=== PATIENT | male | born 1985 | race Caucasian/White ===

== ENCOUNTER 2020-08-21 11:10 | Emergency (ER) | payer MEDICAID, OTHER, SELFPAY ==
[2020-08-21 11:31] VITALS: BP 138/87; PULSE 88; RESP 16; TEMP 36.9; O2SAT 97; BMI 24.3
[2020-08-21 11:34] VITALS: BP 130/84; PULSE 87; RESP 16; TEMP 36.8
== END 2020-08-21 11:36 | disposition home or self-care (01) ==
PROVIDERS: Emergency Provider Nurse Practitioner Family
DX: S01.01XD Laceration without foreign body of scalp, subsequent encounter (principal)

== ENCOUNTER 2020-10-21 19:30 | Emergency (ER) | payer MEDICAID, OTHER, SELFPAY ==
[2020-10-21 19:30] VITALS: BP 136/87; PULSE 84; RESP 18; TEMP 36.8; O2SAT 98; BMI 24.5
--- NOTE | 2020-10-21 20:06 | HMH.EDUTC ---
[facility] [place] Clinical Impression: URI (upper respiratory infection) Qualifiers: URI type: unspecified URI Qualified Code(s): J06.9 - Acute upper respiratory infection, unspecified Disposition: Home, Self-Care Condition on Discharge: Good Instructions: Sore Throat, Sinusitis Additional Instructions: *Monitor Temp, Over the counter Motrin or Tylenol as directed/as needed Tylenol every 4 hours and Motrin every 6 hours (as long as your family doctor has told you that you can take it) for fever or pain. and straight to ER if unable to lower temp less than 101.0 after medication given *Warm salt water gargles may help to soothe the throat *Throat Lozenges *Warm fluids like tea with honey may help to soothe the throat *Sleep elevated *Humidifier/Vaporizer Over the counter cough medication may help if you are having a cough Follow up IMMEDIATELY for new or worsening symptoms or no Noticeable improvement over the next 48-72 hours. 911 for difficulty breathing or swallowing Referrals: PCP,No [Primary Care Provider] - As needed Time of Disposition: 20:27 Medical Decision Making - Al Inquiry Pt receiving controlled substance: No Al was queried for this patient: No Vital Signs: 10/21/20 19:30 10/21/20 20:27 Temperature 98.2 F 98.2 F Temperature Source Oral Pulse Rate 84 Pulse Rate [Right Brachial] 84 Respiratory Rate 18 18 Blood Pressure 136/87 Blood Pressure [Right Arm] 136/87 Blood Pressure Mean [Right Arm] 103 Blood Pressure Source [Right Arm] Automatic Cuff Blood Pressure Position [Right Arm] Sitting 02 Sat by Pulse Oximetry 98 Oxygen Delivery Method Room Air Orders (Tests/Meds): ED MEDICATIONS Discontinued Medications Generic Name Dose Route Start Last Admin Trade Name Freq PRN Reason Stop Dose Admin Ceftriaxone Sodium 1 gm 10/21/20 20:11 10/21/20 20:20 Ceftriaxone 1gm Vial IM 10/21/20 20:12 1 gm ONCE ONE Administration Protocol Lidocaine HCl 0 ml 10/21/20 20:11 10/21/20 20:20 Lidocaine 1% 5ml Pf Vial IM 10/21/20 20:12 2.1 ml ONCE ONE Administration Methylprednisolone Sodium Succinate 125 mg 10/21/20 20:11 10/21/20 20:20 Methylprednisolone Sod Succ 125mg Vial IM 10/21/20 20:12 125 mg ONCE ONE Administration [facility] [place] - General Stated complaint: congested Time Seen by Provider: 10/21/20 20:09 Mode of Arrival: Ambulatory Source of Information: Patient Limitations: No Limitations Description of Symptoms (Recalled from Triage Doc. by RN): PATIENT C/O SINUS CONGESTION X 3 DAYS HEENT Symptoms (Recalled from RN notes): Yes Resp Symptoms (Recalled from RN notes): No Skin Symptoms (Recalled from RN notes): No MS Symptoms (Recalled from RN notes): No Functional Status (Recalled from RN notes): WNL - History of Present Illness Provider Complaint: Patient states that he has been having sinus congestion and pressure that has got worse over the last 2-3 days States that it feels like he is having drainage in the back of his throat and cannot breath out of his nose it so stopped up State that he was worried that it would get worse so he came in to seen and treated before he got worse - Related Data Allergies Allergy/AdvReac Type Severity Reaction Status Date / Time No Known Allergies Allergy Unverified 06/25/17 14:42 - Worker's Comp Is this a Worker's Comp case?: No [facility] History - Hepatitis A Screen Drug use history?: No High risk sexual behaviors?: No History of sexually transmitted infection?: No Currently employed?: No Childcare worker?: No Do you have indoor plumbing?: Yes Do you have electricity?: Yes Attestation statement:: This patient has been screened for Hepatitis A risk factors. I have reviewed the patient's past medical history: Yes Medical History: Denies:: Diabetes Mellitus Type 2, Hypertension Other Surgeries: Yes: Appendectomy, Other (vasectomy) - Social History Smoking Status: Current every day smo
[2020-10-21 20:27] VITALS: BP 136/87; PULSE 84; RESP 18; TEMP 36.8; O2SAT 98
== END 2020-10-21 20:31 | disposition home or self-care (01) ==
PROVIDERS: Emergency Provider Nurse Practitioner
DX: J06.9 Acute upper respiratory infection, unspecified (principal); F17.210 Nicotine dependence, cigarettes, uncomplicated
CPT/HCPCS: 96372; 99202; G0463

== ENCOUNTER 2021-01-03 17:44 | Emergency (ER) | payer MEDICAID, OTHER, SELFPAY ==
[2021-01-03 18:20] VITALS: BP 135/88; PULSE 85; RESP 16; TEMP 37.3; O2SAT 100; BMI 24.3
--- NOTE | 2021-01-03 18:37 | XR_ITS ---
PROCEDURE INFORMATION: Exam: XR Right Ankle Exam date and time: 01/03/2021 6:37 PM Age: 35 years old Clinical indication: Right; Patient HX: Fall, lateral ankle pain and swelling TECHNIQUE: Imaging protocol: XR Right ankle. Views: 3 or more views. Total images: 3 COMPARISON: No relevant prior studies available. FINDINGS: Bones/joints: No fractures. Small to moderate joint effusion distending the posterior recess. Soft tissues: Soft tissue swelling laterally. Other findings: Normal alignment. IMPRESSION: 1. No fracture or dislocation. 2. Soft tissue swelling and ankle joint effusion.
--- NOTE | 2021-01-03 19:43 | HMH.EDUTC ---
[facility] – [place]position Clinical Impression: Right ankle injury Qualifiers: Encounter type: initial encounter Qualified Code(s): S99.911A - Unspecified injury of right ankle, initial encounter Right foot sprain Qualifiers: Encounter type: initial encounter Qualified Code(s): S93.601A - Unspecified sprain of right foot, initial encounter Disposition: Home, Self-Care Condition on Discharge: Good Instructions: How to Use Crutches, Ankle Sprain, DI for Ankle Sprain Additional Instructions: Rest the extremity, apply ice for 15 minutes as tolerated three or four times per day, Elevate the extremity as tolerated while you are resting. Take ibuprofen for pain. I sent in a prescription to your pharmacy. Follow up with Dr. Arroyo (Podiatry). Sometimes there can be fractures that don't show up well on the first set of x-rays. So, you should follow up if you continue to have symptoms. Also, there could be torn ligaments that do not show up on x-rays. So, make sure your follow up. I put in a referral but you need to call her office and schedule an appointment. Follow up with your regular doctor. GO TO THE ER FOR ANY WORSENING SYMPTOMS Prescriptions: Ibuprofen [Ibuprofen 800mg Tablet] 800 mg PO Q8HP PRN #30 tab PRN Reason: Moderate Pain Transmission Status: Received by [facility] #[id number] Referrals: Provider,Donald, [Primary Care Provider] - Lashon Arroyo DPM [Staff Physician] - Forms: Work/School Release Time of Disposition: 19:52 Medical Decision Making - Medical Records Medical records reviewed: No: I reviewed the patient's medical records. - Al Inquiry Pt receiving controlled substance: No Vital Signs: 01/03/21 18:20 01/03/21 19:53 Temperature 99.2 F 99.2 F Temperature Source Oral Pulse Rate 85 Pulse Rate [Right Brachial] 85 Respiratory Rate 16 16 Blood Pressure 135/88 Blood Pressure [Right Arm] 135/88 Blood Pressure Mean [Right Arm] 103 Blood Pressure Source [Right Arm] Automatic Cuff Blood Pressure Position [Right Arm] Sitting 02 Sat by Pulse Oximetry 100 Oxygen Delivery Method Room Air - Radiology Data #1 Image(s): Ankle Image Reviewed: Yes I reviewed the patient's radiology image, Yes I have reviewed radiologist's interpretation Preliminary Findings: Abnormal, No Fracture Seen PROCEDURE INFORMATION: Exam: XR Right Ankle Exam date and time: 01/03/2021 6:37 PM Age: 35 years old Clinical indication: Right; Patient HX: Fall, lateral ankle pain and swelling TECHNIQUE: Imaging protocol: XR Right ankle. Views: 3 or more views. Total images: 3 COMPARISON: No relevant prior studies available. FINDINGS: Bones/joints: No fractures. Small to moderate joint effusion distending the posterior recess. Soft tissues: Soft tissue swelling laterally. Other findings: Normal alignment. IMPRESSION: 1. No fracture or dislocation. 2. Soft tissue swelling and ankle joint effusion. [facility] [place] - General Stated complaint: AO 01/03/21 fell off ladder,hurt rgt ankle Time Seen by Provider: 01/03/21 18:55 Mode of Arrival: Ambulatory Source of Information: Patient Limitations: No Limitations Description of Symptoms (Recalled from Triage Doc. by RN): PATIENT C/O INJURY TO RIGHT ANKLE TODAY HEENT Symptoms (Recalled from RN notes): No Resp Symptoms (Recalled from RN notes): No Skin Symptoms (Recalled from RN notes): No MS Symptoms (Recalled from RN notes): Yes Functional Status (Recalled from RN notes): WNL - History of Present Illness Provider Complaint: He slipped off the step of a ladder and came down on his right foot and ankle. He states that he fell about 3 to 4 feet in the process of doing this. - Related Data Previous Rx's Medication Instructions Recorded Ibuprofen [Ibuprofen 800mg 800 mg PO Q8HP PRN #30 tab 01/03/21 Tablet] Allergies Allergy/AdvReac Type
[2021-01-03 19:53] VITALS: BP 135/88; PULSE 85; RESP 16; TEMP 37.3; O2SAT 100
== END 2021-01-03 19:57 | disposition home or self-care (01) ==
PROVIDERS: Emergency Provider Nurse Practitioner Family
DX: S93.601A Unspecified sprain of right foot, initial encounter (principal); S99.911A Unspecified injury of right ankle, initial encounter; W11.XXXA Fall on and from ladder, initial encounter; Y92.9 Unspecified place or not applicable
CPT/HCPCS: 29515; 73610; 99203; G0463

== ENCOUNTER 2022-08-09 09:27 | Emergency (ER) | payer MEDICAID, SELFPAY ==
[2022-08-09 09:28] VITALS: BP 122/77; PULSE 73; RESP 20; TEMP 36.7; O2SAT 98; BMI 24.3
--- NOTE | 2022-08-09 10:21 | EXP.UTC ---
Discharge Plan Disposition Patient Disposition: Home, Self-Care Condition: Good Prescriptions Prescriptions: New azithromycin [Zithromax] 250 mg tablet 250 mg PO UD DOSE PK Qty: 6 0RF Rx Instructions: Take two (2) tablets today, then one (1) tablet days #2 thru #5 benzonatate [benzonatate] 100 mg capsule 100 mg PO TIDP PRN (Reason: Cough) Qty: 30 0RF methylprednisolone 4 mg Tablets,Dose Pack 4 mg PO DIRECTED Qty: 21 0RF No Action ibuprofen 800 mg tablet 800 mg PO BID 30 Days Qty: 60 3RF Referrals Follow up/Referrals: Provider,Referral, MD [Primary Care Provider] - See instructions Activity Restrictions/Add. Instructions Additional Instructions/Restrictions: Drink plenty of fluids. Take tylenol or ibuprofen for pain or fever. Take the medications as directed. Follow up with your regular doctor. GO TO THE ER FOR ANY WORSENING SYMPTOMS Clinical Impressions Clinical Impression: Bronchitis, Sinusitis Stand Alone Forms Stand Alone Forms: Work/School Release Instructions Patient Instructions: DI for Sinusitis, DI for Acute Bronchitis Discharge ED Provider: Dominick Garcia [facility] General Stated complaint: Bodyaches congestion fever Time Seen by Provider: 08/09/22 10:21 History of Present Illness Provider Complaint: He states that for the past 2 days he has had sore throat, sinus congestion, and chest congestion. Related Data Previous Rx's Medication Instructions Recorded ibuprofen 800 mg tablet 800 mg PO BID pain, mild 30 days 01/23/21 #60 tabs azithromycin 250 mg tablet 250 mg PO UD DOSE PK #6 tabs 08/09/22 (Zithromax) benzonatate 100 mg capsule 100 mg PO TIDP PRN Cough #30 caps 08/09/22 methylprednisolone 4 mg tablets in 4 mg PO DIRECTED #21 tabs 08/09/22 a dose pack Allergies Allergy/AdvReac Type Severity Reaction Status Date / Time No Known Allergies Allergy Verified 08/09/22 10:48 [facility] Disclaimer: The information contained in this section may have been updated after the patient was seen, as this information can be updated by other users. Social History Smoking Status: Current every day smoker tobacco type: cigarettes alcohol intake: never substance use type: denies use current occupational status: employed Travel in the last 8 weeks: None ROS Obtained: Yes All systems reviewed & no additional complaints except as documented Constitutional Constitutional: Reports chills and Reports fever(s) Eyes Eyes: Denies eye discharge ENT Ears, Nose, Mouth, and Throat: Reports as per HPI Cardiovascular Cardiovascular: Denies chest pain Respiratory Respiratory: Denies chest congestion and Reports cough Gastrointestinal Gastrointestingal: Reports nausea; Denies abdominal pain, constipation, cramping, diarrhea or vomiting Musculoskeletal Musculoskeletal: Denies arthralgias Integumentary/Breasts Skin/Breast: Denies rash Neurologic Neurologic: Denies paresthesias Physical Exam General General appearance: alert and in no apparent distress Head Head exam: atraumatic, normocephalic and normal inspection Eye Eye exam: Present normal appearance, PERRL and EOMI ENT ENT exam: Present normal exam, normal oropharynx, mucous membranes moist, TM's normal bilaterally and normal external ear exam Neck Neck exam: Present normal inspection, full ROM and trachea midline; Absent meningismus or lymphadenopathy Chest Chest inspection: Present normal inspection and symmetric chest wall rise; Absent tenderness Respiratory Respiratory exam: Present normal lung sounds bilaterally; Absent respiratory distress Cardiovascular Cardiovascular exam: Present regular rate and normal rhythm; Absent JVD Abdominal Exam Abdominal exam: Present soft and normal bowel sounds; Absent distention, tenderness or guarding Extremities Exam Extremities exam: Present normal inspection, full ROM and normal capillary
[2022-08-09 10:30] VITALS: BP 122/77; PULSE 73; RESP 20; TEMP 36.7; O2SAT 98
[2022-08-09 10:35] LABS: UTC Strep Screen (Rapid) Negative (Negative)
[2022-08-09 10:36] LABS: UTC Influenza A Antigen Negative (Negative); UTC Influenza B Antigen Negative (Negative)
== END 2022-08-09 10:30 | disposition home or self-care (01) ==
PROVIDERS: Emergency Provider Nurse Practitioner Family
DX: J40 Bronchitis, not specified as acute or chronic (principal); J32.9 Chronic sinusitis, unspecified
CPT/HCPCS: 87804; 87880; 99212; 99213; G0463